=== PATIENT | female | born 1950 | race Caucasian/White ===

== ENCOUNTER 2020-04-12 11:53 | Emergency (ER) | payer MEDICARE, OTHER, SELFPAY ==
--- NOTE | ~2020-04-12 | XR_ITS ---
EXAMINATION: XR knee LT min 4V DATE: 04/12/2020 12:36 INDICATION: Left knee pain and swelling. TECHNIQUE: 4 views of left knee were obtained. COMPARISON: Left knee radiographs 03/03/2013 FINDINGS: Bone alignment is normal. No fracture. There is mild tricompartmental osteoarthritis. There is chondrocalcinosis of medial meniscus. There is a moderate-sized knee joint effusion. IMPRESSION: 1. Mild left knee osteoarthritis. 2. Moderate-sized left knee joint effusion. Reviewed, dictated and finalized at location B.
--- NOTE | ~2020-04-12 | XR_ITS ---
EXAMINATION: XR shoulder LT min 2V DATE: 04/12/2020 12:36 INDICATION: Left shoulder pain. Fall. TECHNIQUE: 4 views of left shoulder were obtained. COMPARISON: None. FINDINGS: Bone alignment is normal. No fracture. Glenohumeral joint is normal. There is mild acromioc lavicular joint osteoarthritis. IMPRESSION: 1. Mild left acromioclavicular joint osteoarthritis. Reviewed, dictated and finalized at location B.
[2020-04-12 12:14] VITALS: BP 183/85; PULSE 75; RESP 20; TEMP 36.7; O2SAT 100
--- NOTE | 2020-04-12 12:17 | ED.GENADULT ---
HPI - General Adult General Chief complaint: Extremity Injury, Lower Stated complaint: Laseration/lower extrmity injury Time Seen by Provider: 04/12/20 12:30 Source: patient and RN notes reviewed Mode of arrival: ambulatory Limitations: no limitations History of Present Illness HPI narrative: 69-year-old female presents with complaints of left shoulder pain for 1 day. Ice and Ibuprofen 200mg last this morning at approximately 10:30 without relief. 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 Denies numbness or tingling. Hurts with movement of shoulder. Denies radiating pain. No loss of mobility. No swelling. Exacerbating factor is movement. Relieving factor is rest and pain medication. The dominant hand is the RIGHT HAND. Remains active. The patient reports she have not been diagnosed with COVID-19. The patient reports she is not waiting for the results of a COVID-19 lab test. The patient reports she do not have fever, chills, weakness, or fatigue. The patient reports she do not have a new or worsening cough or shortness of breath. Denies chest pain. The patient reports she do not have any rhinorrhea, congestion, sore throat, nausea, vomiting, abdominal pain, and diarrhea. Tolerating po intake well. Denies recent traveling. Denies concerns for COVID-19 or exposures been home with limited outdoor exposure except for essential household needs and return home. At this time, patient is not suspected of having COVID-19. Complains of left lateral-anterior knee pain and swelling for 1 day. Ice and Ibuprofen 200mg last this morning at approximately 10:30 without relief. 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 No radiation of pain. No numbness or tingling, or bleeding. Swelling. No loss of mobility. Exacerbating factor consist of bearing weight and palpation. No fever or chills. LMP menopause. Remains active. Some parts of this dictation were generated by voice recognition software and may contain typographical and/or grammatical inaccuracies. Related Data Home Medications Medication Instructions Recorded Confirmed cholecalciferol (vitamin D3) 125 5,000 unit PO DAILY 08/11/19 04/12/20 mcg (5,000 unit) capsule Allergies Allergy/AdvReac Type Severity Reaction Status Date / Time acetic acid Allergy Unknown Itching Verified 10/20/19 12:40 [Summer's Tati Disposable Douche] benzoic acid Allergy Unknown Itching Verified 10/20/19 12:40 [[employer]ati Disposable Douche] cephalexin Allergy Unknown rash,swelli Verified 10/20/19 12:40 ng Cephalosporins Allergy Unknown Itching Verified 10/20/19 12:40 citric acid Allergy Unknown Itching Verified 10/20/19 12:40 [[employer]ati Disposable Douche] clarithromycin Allergy Unknown Swelling Verified 10/20/19 12:40 of Lip/Tongue/Throat iodine Allergy Unknown Skin Verified 10/20/19 12:40 Reaction octoxynol 9 Allergy Unknown Itching Verified 10/20/19 12:40 [Summer[employer] Tati Disposable Douche] Penicillins Allergy Unknown hives,swell Verified 10/20/19 12:40 ing povidone Allergy Unknown Itching Verified 10/20/19 12:40 povidone-iodine Allergy Unknown Itching Verified 10/20/19 12:40 soap [Betadine] Allergy Unknown Itching Verified 10/20/19 12:40 sodium chloride Allergy Unknown Itching Verified 10/20/19 12:40 [Summer's Tati Disposable Douche] sodium citrate Allergy Unknown Itching Verified 10/20/19 12:40 [Summer's Tati Disposable Douche] sodium lauryl sulfate Allergy Unknown Itching Verified 10/20/19 12:40 [Summer's Tati Disposable Douche] Sulfa (Sulfonamide Allergy Unknown Skin Verified 10/20/19 12:40 Antibiotics) Reaction vancomycin Allergy Unknown Other Verified 10/20/19 12:40 Review of Systems Review of Systems: Narrative: CONSTITUTIONAL: Denies fever, chills, sweats. EYES: Denies visua
[2020-04-12 13:07] VITALS: BP 162/81; PULSE 67
== END 2020-04-12 13:08 | disposition home or self-care (01) ==
PROVIDERS: Emergency Provider Nurse Practitioner Family; PCP Family Medicine
DX: S83.92XA Sprain of unspecified site of left knee, initial encounter (principal); W18.09XA Striking against other object with subsequent fall, initial encounter; S43.402A Unspecified sprain of left shoulder joint, initial encounter; M25.462 Effusion, left knee; Z87.891 Personal history of nicotine dependence; I10 Essential (primary) hypertension; E78.5 Hyperlipidemia, unspecified; E87.1 Hypo-osmolality and hyponatremia; M85.80 Other specified disorders of bone density and structure, unspecified site
CPT/HCPCS: 73030; 73564; 99214; G0463

== ENCOUNTER → 2020-04-22 09:05 | Outpatient (CLI) | payer MEDICARE, OTHER, SELFPAY ==
--- NOTE | ~2020-04-22 | MR_ITS ---
EXAMINATION: MR knee LT wo con DATE: 04/22/2020 09:47 INDICATION: Generalized left knee pain and swelling TECHNIQUE: Magnetic resonance imaging (MRI) of the left knee was performed without intravenous contra st. Sequences included coronal PD-weighted FSE, coronal PD-weighted FS FSE, sagittal T2-weighted FSE , sagittal PD-weighted FS FSE and axial PD weighted fat saturated FSE. COMPARISON: None. FINDINGS: Medial compartment: Complex tear involving the body and posterior horn of the medial meniscus both of which are small whi ch could reflect either secondary loss or degeneration of meniscal tissue or changes of an earlier pa rtial meniscectomy. Full/near full-thickness cartilage loss with mild irregularity to the underlying articular cortex and mild subarticular edema involving the anterior and medial aspects of the medial tibial plateau and the anterior to central weightbearing medial femoral condyle. Less severe partial thickness cartilage loss along the remainder of the medial tibial plateau and at the posterior weight bearing medial femoral condyle where there is additional deep fissuring and mild subarticular cystic change. Lateral compartment: Lateral meniscus is normal. Partial-thickness cartilage loss along the the medial aspect of the later al tibial plateau extending onto the shoulder the intercondylar eminence throughout the weightbearing lateral femoral condyle with fissuring and chondral surface regularity at the posterior weightbearin g lateral femoral condyle. Patellofemoral compartment: Chondral fissuring and ulceration with underlying mild irregularity to the articular cortex and subar ticular edema at the inferolateral aspect of the medial trochlea. Deep chondral fissure without degen erative subchondral changes at the central aspect of the trochlear groove. Deep chondral fissure is a t the medial patellar facet and apical ridge which appear to be associated with a mildly comminuted i ntra-articular fracture of the patella yielding 2 nondisplaced fragments comprising the medial and in feromedial aspects of the patella. There is surrounding marrow edema in the patella. The orientation of the fracture lines is best appreciated on coronal series 6, images 20-22. Ligaments and tendons: Anterior and posterior cruciate ligaments are normal. The medial collateral ligament and fibular monster ateral ligament complex are normal. The extensor mechanism is normal. The visualized medial and later al hamstring tendons as well as the iliotibial band are normal. Fluid: Large knee joint effusion with mild synovitis at the suprapatellar pouch. No loose osteochondral bodi es identified. Osseous/other: Nondisplaced comminuted intra-articular fracture at the patella as previously noted. No other fractur es or pathologic marrow replacing process. IMPRESSION: 1. Comminuted intra-articular fracture of the patella. 2. Complex medial meniscal tear with decreased amount of meniscal tissue the body and posterior horn which could reflect changes of prior partial meniscectomy or secondary displacement/degeneration. 3. Tricompartmental osteoarthritis, greatest in the medial compartment where it is of moderate severi ty with extensive high-grade chondromalacia. 4. Large left knee joint effusion. Reviewed, dictated and finalized at location A. IMPRESSION: 1. Comminuted intra-articular fracture of the patella. 2. Complex medial meniscal tear with decreased amount of meniscal tissue the edward dy and posterior horn which could reflect changes of prior partial meniscectomy or secondary displacement/degeneration. 3. Tricompartmental osteoarthritis, greatest in the medial compartment where it is of moderate severity with extensive high-grade chondromalacia. 4. L
== END ==
PROVIDERS: Visit Provider Family Medicine
DX: M17.12 Unilateral primary osteoarthritis, left knee (principal); M25.462 Effusion, left knee; S83.232A Complex tear of medial meniscus, current injury, left knee, initial encounter; X58.XXXA Exposure to other specified factors, initial encounter
CPT/HCPCS: 73721

== ENCOUNTER 2020-05-30 00:56 | Outpatient (CLI) | payer MEDICARE, OTHER, SELFPAY ==
[2020-05-30 18:01] LABS: SARS-CoV-2 RNA PCR Negative
== END 2020-05-30 00:57 | disposition home or self-care (01) ==
LOC: ANHCOVIDDT 00:56
PROVIDERS: PCP Family Medicine; Visit Provider Internal Medicine Gastroenterology
DX: Z20.828 Contact with and (suspected) exposure to other viral communicable diseases (principal)
CPT/HCPCS: 87635; C9803; U0003

== ENCOUNTER 2020-06-01 00:35 | Day surgery (SDC) | payer MEDICARE, OTHER, SELFPAY ==
[2020-05-30 13:32] VITALS: BMI 27.1
[2020-06-01 06:22] VITALS: BP 134/69; PULSE 76; RESP 16; TEMP 36.5; O2SAT 97
[2020-06-01] MEDS: LACTATED RINGERS 1,000 ML 150 ML IV CONT (06:38)
--- NOTE | 2020-06-01 07:14 | WPDANESEPPF ---
Anes - Initial Pre Proc Eval Procedure: Operation Date: 06/01/20 07:30 Proposed Procedures p Screening Colonoscopy - Dashawn Ortiz MD Date/Time: 06/01/20 07:14 Surgeon: Dashawn Ortiz MD Pre Op Diagnosis: hx colon polyps, family hxx colon CA Patient Data Age: 69 Gender: F Height: 5 ft 1 in Weight: 64.6 kg Last Vital Signs Temp 36.5 C 06/01/20 06:22 Pulse 76 06/01/20 06:22 Resp 16 06/01/20 06:22 BP 134/69 06/01/20 06:22 Pulse Ox 97 06/01/20 06:22 Allergies Allergy/AdvReac Type Severity Reaction Status Date / Time acetic acid Allergy Unknown Itching Verified 06/01/20 06:21 [Summer's Tati Disposable Douche] benzoic acid Allergy Unknown Itching Verified 06/01/20 06:21 [Summer's Tati Disposable Douche] cephalexin Allergy Unknown rash,swelli Verified 06/01/20 06:21 ng Cephalosporins Allergy Unknown Itching Verified 06/01/20 06:21 citric acid Allergy Unknown Itching Verified 06/01/20 06:21 [[employer] Tati Disposable Douche] clarithromycin Allergy Unknown Swelling Verified 06/01/20 06:21 of Lip/Tongue/Throat octoxynol 9 Allergy Unknown Itching Verified 06/01/20 06:21 [[employer]ati Disposable [employer]che] Penicillins Allergy Unknown hives,swell Verified 06/01/20 06:21 ing povidone-iodine Allergy Unknown Itching Verified 06/01/20 06:21 soap [Betadine] Allergy Unknown Itching Verified 06/01/20 06:21 Sulfa (Sulfonamide Allergy Unknown Skin Verified 06/01/20 06:21 Antibiotics) Reaction Home Medications Medication Instructions Recorded Confirmed Type cholecalciferol (vitamin D3) 125 5,000 unit PO DAILY 08/11/19 06/01/20 History mcg (5,000 unit) capsule benazepril 10 mg tablet 10 mg PO BID #180 tablet 01/05/20 06/01/20 Rx amlodipine 5 mg tablet 5 mg PO DAILY 90 Days #90 tablet 04/20/20 06/01/20 Rx sertraline 25 mg FEEDING TUBE DAILY 05/30/20 06/01/20 History ofloxacin 0.3 % ear drops 10 drop EACH EAR DAILY 7 Days #10 05/31/20 06/01/20 Rx ml Patient hx anesthesia problems: none Family hx anesthesia problems: none PMFSH Past Medical History Medical History Anxiety Arthritis of left knee Benign essential hypertension Generalized anxiety disorder Hemorrhoids HTN (hypertension) Hyperlipidemia Hyponatremia Left patella fracture Myalgia Osteopenia Post-menopausal Shingles Tympanosclerosis of both ears Surgical History Surgical History H/O arthroscopy of left knee H/O laminectomy H/O medial meniscus repair of right knee History of bilateral tubal ligation History of bunionectomy History of mastectomy History of tonsillectomy History of tubal ligation Family History Family History Mother Family history of mental disorder Depression Family history of glaucoma Hypertension Family history of coronary artery disease Grandparent Depression Family history of glaucoma Family history of cardiovascular disease Family history of malignant neoplasm of breast Family history of coronary artery disease Sibling Depression Family history of glaucoma Hypertension Family history of elevated blood lipids Family history of cardiovascular disease Carcinoma of colon Family history of coronary artery disease Father Family history of elevated blood lipids, Onset Age: 55 Family history of cardiovascular disease, Onset Age: 55 Acute myocardial infarction, Onset Age: 55 Family history of sudden , Onset Age: 55 Social History Social History Smoking status: Never smoker Tobacco type: cigarettes Second hand tobacco smoke exposure: No Alcohol intake: current Substance use: never Substance use type: does not use Living arrangements: with family Gender identity
--- NOTE | 2020-06-01 07:54 | WPDGICN ---
Assessment and Plan Assessment and plan (1) Encounter for colonoscopy due to history of adenomatous colonic polyps: Code(s): Z12.11 - Encounter for screening for malignant neoplasm of colon; Z86.010 - Personal history of colonic polyps Status: Acute Assessment and Plan: Patient is a history of adenomatous colon polyps. Her sister has had colon cancer. Plan is for surveillance colonoscopy now and at 5 year intervals in the future. (2) Family history of malignant neoplasm of colon in relative diagnosed when younger than 50 years of age: Code(s): Z80.0 - Family history of malignant neoplasm of digestive organs Status: Acute GI Consult Note Consult date/time: 06/01/20 07:54 HPI: Geetha Flores is a 69 year old female Seen in evaluation at the request of Dr. Cosme Stanford. Patient presents for surveillance colonoscopy. Patient's current weight appetite bowel movements are normal. She denies abdominal pain. She has had no blood in her stools. Her last colonoscopy 5 years ago revealed an adenomatous colon polyp. Family history is significant that her sister has had colon cancer. Review of Systems Review of Systems: All systems reviewed & are unremarkable except as noted in HPI and below PMFSH Past Medical History Medical History Anxiety Arthritis of left knee Benign essential hypertension Generalized anxiety disorder Hemorrhoids HTN (hypertension) Hyperlipidemia Hyponatremia Left patella fracture Myalgia Osteopenia Post-menopausal Shingles Tympanosclerosis of both ears Surgical History Surgical History H/O arthroscopy of left knee H/O laminectomy H/O medial meniscus repair of right knee History of bilateral tubal ligation History of bunionectomy History of mastectomy History of tonsillectomy History of tubal ligation Family History Family History Mother Family history of mental disorder Depression Family history of glaucoma Hypertension Family history of coronary artery disease Grandparent Depression Family history of glaucoma Family history of cardiovascular disease Family history of malignant neoplasm of breast Family history of coronary artery disease Sibling Depression Family history of glaucoma Hypertension Family history of elevated blood lipids Family history of cardiovascular disease Carcinoma of colon Family history of coronary artery disease Father Family history of elevated blood lipids, Onset Age: 55 Family history of cardiovascular disease, Onset Age: 55 Acute myocardial infarction, Onset Age: 55 Family history of sudden , Onset Age: 55 Social History Social History Smoking status: Never smoker Tobacco type: cigarettes Second hand tobacco smoke exposure: No Alcohol intake: current Substance use: never Substance use type: does not use Living arrangements: with family Gender identity (if verbalized by the patient): Female Sexual Orientation (if Verbalized by the Patient): Straight or Heterosexual Spiritual care concerns: No Meds Home Medications and Allergies Home Medications Medication Instructions Recorded Confirmed Type cholecalciferol (vitamin D3) 125 5,000 unit PO DAILY 08/11/19 06/01/20 History mcg (5,000 unit) capsule benazepril 10 mg tablet 10 mg PO BID #180 tablet 01/05/20 06/01/20 Rx amlodipine 5 mg tablet 5 mg PO DAILY 90 Days #90 tablet 04/20/20 06/01/20 Rx sertraline 25 mg FEEDING TUBE DAILY 05/30/20 06/01/20 History ofloxacin 0.3 % ear drops 10 drop EACH EAR DAILY 7 Days #10 05/31/20 06/01/20 Rx ml Allergies Allergy/AdvReac Type Severity Reaction Status Date / Time acetic acid Allergy Unknown Itching Verified 06/01/20 06:21 [Marcia
[2020-06-01 07:57] VITALS: BP 89/54; PULSE 67; RESP 19; O2SAT 93
[2020-06-01 08:07] VITALS: BP 106/74; PULSE 63; RESP 19; O2SAT 100
[2020-06-01 08:17] VITALS: BP 114/72; PULSE 62; RESP 19; O2SAT 100
== END 2020-06-01 08:44 | disposition home or self-care (01) ==
PROVIDERS: PCP Family Medicine; Visit Provider Internal Medicine Gastroenterology
PROC: 0DJD8ZZ Inspection of Lower Intestinal Tract, Via Natural or Artificial Opening Endoscopic (ICD-10-PCS; CPT 45378; principal; 2020-06-01 07:30)
DX: Z12.11 Encounter for screening for malignant neoplasm of colon (principal); Z86.010 Personal history of colon polyps; Z80.0 Family history of malignant neoplasm of digestive organs; I10 Essential (primary) hypertension; E78.5 Hyperlipidemia, unspecified; E87.1 Hypo-osmolality and hyponatremia
CPT/HCPCS: G0105; J2704; J7120

== ENCOUNTER → 2020-07-25 10:25 | Outpatient (CLI) | payer MEDICARE, OTHER, SELFPAY ==
--- NOTE | ~2020-07-25 | DEXA_ITS ---
Bone Density Report Name: Geetha Flores Age: 69 Sex: Female Ethnicity: White Date of : 1950 Indication: osteopenia; parental hip fracture; height loss; Referring Provider: ZAHIRA MIRELES Study: Bone densitometry was performed. Exam Date: July 25, 2020 Accession number: [id number] Bone Density: Region BMD T-score Z-score Classification AP Spine (L1-L4) 0.861 -1.7 0.3 Osteopenia Femoral Neck (Left) 0.741 -1.0 0.7 Normal Total Hip (Left) 0.899 -0.4 1.1 Normal Femoral Neck (Right) 0.716 -1.2 0.5 Osteopenia Total Hip (Right) 0.940 0.0 1.4 Normal Total Hip Mean 0.920 -0.2 1.3 Normal World Health Organization criteria for BMD impression classify patients as: Normal (T-score at or above -1.0), Osteopenia (T-score between -1.0 and -2.5), or Osteoporosis (T-score at or below -2.5). 10-year Fracture Risk(1): Major Osteoporotic Fracture 15% Hip Fracture 1.7% Reported Risk Factors: [place] (), Neck BMD=0.716, BMI=27.4, parental fracture (1) FRAX(R) Version 3.08. Fracture probability calculated for an untreated patient. Fracture probability may be lower if the patient has received treatment. Previous Exams: Region Exam Age BMD T-score BMD Change BMD Change Date g/cm2 vs Baseline vs Previous AP Spine(L1-L4) 07/25/2020 69 0.861 -1.7 0.100* 0.043* 10/25/2014 63 0.817 -2.1 0.057* 0.009 08/04/2012 61 0.808 -2.2 0.048* 0.048* 07/19/2010 59 0.761 -2.6 Total Hip(Left) 07/25/2020 69 0.899 -0.4 -0.097* -0.067* 10/25/2014 63 0.966 0.2 -0.030* 0.011 08/04/2012 61 0.955 0.1 -0.041* -0.041* 07/19/2010 59 0.996 0.4 Total Hip(Right) 07/25/2020 69 0.940 0.0 -0.071* -0.040* 10/25/2014 63 0.981 0.3 -0.031* 0.025 08/04/2012 61 0.955 0.1 -0.057* -0.057* 07/19/2010 59 1.012 0.6 *Denotes significance at 95% confidence level, LSC for AP Spine = 0.022 g/cm2, LSC for Total Hip = 0.027 g/cm2 Clinical Information Provided by Patient: Parent has had a hip fracture Has used the following medications: Vitamin D, Calcium Patient maximum height was 62 Menopause Age: 54 No regular weight bearing exercise Drinks caffeinated beverages Onset of menses at age 13 Number of children 3 Impression: The patient has low bone mass, based
--- NOTE | ~2020-07-25 | MM_ITS ---
EXAMINATION: MM screening terese BI w brian HISTORY: Screening mammogram TECHNIQUE: Craniocaudal and mediolateral oblique 3-D tomosynthesis images were obtained and synthetic 2-D images were generated. CAD analysis was submitted and interpreted. COMPARISON: 06/03/2018, 03/20/2017, 10/25/2014 bilateral digital screening mammogram examinations BREAST PARENCHYMAL COMPOSITION: There are scattered areas of fibroglandular density. FINDINGS: Occasional benign calcifications on the left There is no evidence of suspicious mass, calci fication, or architectural distortion to suggest malignancy in either breast. There has been no suspi cious interval change. IMPRESSION: 1. No mammographic evidence of malignancy. 2. Recommend routine screening mammography in one year. BI-RADS Category 2: Benign finding(s). Reviewed, dictated and finalized at location A. [facility]
== END ==
PROVIDERS: PCP Family Medicine; Visit Provider Family Medicine
DX: Z12.31 Encounter for screening mammogram for malignant neoplasm of breast (principal); Z78.0 Asymptomatic menopausal state; M85.851 Other specified disorders of bone density and structure, right thigh
CPT/HCPCS: 77063; 77067; 77080